=== PATIENT | male | born 1955 | race Caucasian/White ===

== ENCOUNTER 2020-05-06 06:20 | Observation (INO) | payer OTHER ==
[~2020-05-06 06:20] MED LIST: BACTRIM DS TAB1 EACH PO; IBUPROFEN600 MG PO; JANUVIA100 MG PO; NORCO 7.5-3251 EACH PO; PROTONIX40 MG PO; VENTOLIN HFA 66.7 GM INH
[2020-05-06 07:14] LABS: BUN/CREATININE RATIO 17 (0-10)
[2020-05-06] MEDS ORDERED: HYDROCODON-ACE1 EAC2 PO (07:16)
[2020-05-06] MEDS ORDERED: PROTONIX 40 MG40 M1 PO (07:16)
== END 2020-05-06 20:59 | disposition home or self-care (01) ==
LOC: OR 06:20 → M/S 19:37
PROVIDERS: Orthopaedic Surgery; ADMIT Internal Medicine
PROC: 0PSJ04Z Reposition Left Radius with Internal Fixation Device, Open Approach (ICD-10-PCS; principal; 2020-05-06 07:30)
DX: S52.302A Unspecified fracture of shaft of left radius, initial encounter for closed fracture (principal); U07.1 COVID-19; E11.9 Type 2 diabetes mellitus without complications; I10 Essential (primary) hypertension; J45.909 Unspecified asthma, uncomplicated; K21.9 Gastro-esophageal reflux disease without esophagitis; G62.9 Polyneuropathy, unspecified; E66.01 Morbid (severe) obesity due to excess calories; Z79.899 Other long term (current) drug therapy; W00.0XXA Fall on same level due to ice and snow, initial encounter
CPT/HCPCS: 36415; 73090; 76000; 80048; 82962; 87635; 93005; C1713; G0378; J0171; J0690; J1100; J2001; J2405; J2704; J2795; J3010; J7120